=== PATIENT | male | born 1935 | race African-American/Black ===

== ENCOUNTER 2017-01-30 23:52 | Inpatient (IN) | payer MEDICARE, OTHER ==
[~2017-01-30] VITALS: Ht 188 cm; Wt 79.5 kg
[2017-01-31 00:45] LABS: ABNORMAL IP MESSAGE 1; BASOPHIL # 0.1 10^3/ul (0.0-0.1); BASOPHILS % 0.6 % (0.0-2.0); EOSINOPHILS # 0.1 10^3/ul (0.0-0.5); EOSINOPHILS % 0.8 % (0.0-7.0); HEMATOCRIT 41.3 % (42.0-52.0); HEMOGLOBIN 13.7 g/dl (14.0-18.0); LYMPHOCYTES # 1.5 10^3/ul (0.8-2.9); MEAN CORPUSCULAR HEMOGLOBIN 23.1 pg (29.0-33.0); MEAN CORPUSCULAR HGB CONC 33.2 g/dl (32.0-37.0); MEAN CORPUSCULAR VOLUME 69.6 fl (82.0-101.0); MONOCYTES % 11.8 % (0.0-11.0); NEUTROPHILS % 68.3 % (39.0-77.0); PLATELET COUNT 171 10^3/UL (140-415); POSITIVE DIFF @See below; RED BLOOD COUNT 5.93 10^6/ul (4.70-6.10); RED CELL DISTRIBUTION WIDTH 16.9 % (11.5-14.5); WHITE BLOOD COUNT 8.4 10^3/ul (4.8-10.8)
[2017-01-31 01:05] LABS: ALBUMIN 3.2 g/dl (3.3-4.9); ALBUMIN/GLOBULIN RATIO 0.94; BILIRUBIN,INDIRECT 1.1 mg/dl (0-1.1); BILIRUBIN,TOTAL 1.1 mg/dl (0.2-1.3); CALCIUM 9.2 mg/dl (8.4-10.2); CREATININE 1.39 mg/dl (0.61-1.24); POTASSIUM 3.8 mmol/L (3.5-5.1); TOTAL PROTEIN 6.6 g/dl (6.1-8.1)
--- NOTE | 2017-01-31 01:12 | RADRPT ---
PROCEDURE: Chest. CLINICAL INDICATION: Shortness of breath. TECHNIQUE: Single frontal view of the chest was obtained. COMPARISON: None. FINDINGS: There is a left-sided pacemaker AICD. The cardiac silhouette is enlarged. The aortic arch is calcif ied. There is mild pulmonary venous congestion. There is mild right basilar atelectasis/infiltrate. There is no pleural effusion. There is a calcified left mediastinal lymph node measuring 2.5 x 1.3 cm. There is no pneumothorax. IMPRESSION: Moderate cardiomegaly and mild pulmonary venous congestion. Right basilar atelectasis/infiltrate. Aortic atherosclerosis. Calcified left mediastinal lymph node. .Ismael Diaz MD, MD Date Time Electronically viewed and signed by .Ismael Diaz MD, on 01/31/2017 01:12 .T/
[2017-01-31 01:16] LABS: TROPONIN-I 0.056 ng/ml (0.00-0.12)
[2017-01-31] MEDS ORDERED: FUROSEMIDE 40 MG INJ IV ONE (02:30)
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
[2017-01-31] MEDS ORDERED: SIMV20TA PO (03:11)
[2017-01-31] MEDS ORDERED: CARV25TA79 PO (03:11)
[2017-01-31] MEDS ORDERED: FURO20TA3 PO (03:11)
[2017-01-31] MEDS ORDERED: LISI20TA11 PO (03:11)
[2017-01-31] MEDS ORDERED: CHOL100062 PO (03:11)
[2017-01-31] MEDS ORDERED: ALBUTEROL/IPRATROPIUM (NEB) 3 ML AMP HHN PRN ×2 (06:30→22:30)
[2017-01-31] MEDS ORDERED: NITROGLYCERIN (SL) 0.4 MG TAB SL PRN ×2 (06:30→22:30)
[2017-01-31] MEDS ORDERED: NACL 0.9% 3 ML SYG IV SCH (06:30)
[2017-01-31] MEDS ORDERED: ACETAMINOPHEN 325 MG TAB PO PRN ×2 (06:30→22:30)
[2017-01-31] MEDS ORDERED: LORAZEPAM 0.5 MG TAB PO PRN ×2 (06:30→22:30)
[2017-01-31] MEDS ORDERED: ONDANSETRON 4 MG INJ IV PRN ×2 (06:30→22:30)
[2017-01-31] MEDS ORDERED: ENALAPRILAT 1.25 MG INJ IV ONE (08:30)
[2017-01-31 08:44] LABS: TROPONIN-I 0.067 ng/ml (0.00-0.12)
[2017-01-31 08:46] LABS: CK-MB 1.24 ng/ml (0.0-2.4)
[2017-01-31] MEDS ORDERED: LEVOFLOXACIN 500MG/D5W (PMX) 100 ML IVPB SCH (09:00)
[2017-01-31] MEDS ORDERED: FUROSEMIDE 20 MG INJ IV SCH (09:00)
[2017-01-31] MEDS ORDERED: HEPARIN 5,000 UNIT/0.5 ML VIAL SC SCH (09:00)
[2017-01-31] MEDS ORDERED: LISINOPRIL 20 MG TAB PO SCH (09:00)
[2017-01-31] MEDS ORDERED: CHOLECALCIFEROL 1,000 UNIT TAB PO SCH (09:00)
[2017-01-31 13:23] LABS: CK-MB 1.2 ng/ml (0.0-2.4); TROPONIN-I 0.074 ng/ml (0.00-0.12)
[2017-01-31 15:30] VITALS: TEMP 98
--- NOTE | 2017-01-31 16:26 | RADRPT ---
Echocardiogram Report Patient Name: DANIELLE BARNETT Gender: Male Date: 1935 Study Date: 31-Jan-2017 [place] Cleaner: Missael De Luna [facility] Location: [facility] Ref. Physician: GIRISH CURRY Quality: Adequate Procedures: Transthoracic echocardiogram with complete 2D, M-Mode, and doppler examination. Indications: Shortness of breath. 2D/M Mode Doppler Measurement Value Normal Ranges Measurement Value Normal Ranges LVIDd 2D 6.4 3.5 - 5.6 cm AV Peak Dax 0.9 m/sec LVIDs 2D 5.7 2.1 - 4.1 cm AV Peak PG 3.0 mmHg FS 2D 11.4 % LVOT Peak Dax 0.7 m/sec LVPWd 2D 1.1 0.6 - 1.1 cm LVOT Peak PG 2.0 mmHg IVSd 2D 1.1 0.6 - 1.1 cm MV E Peak Dax 0.9 m/sec IVS/LVPW 2D 0.9 MV Decel Time 215 msec AoR Diam 2D 3.2 2.0 - 3.7 cm MR Peak PG 100.0 mmHg LA/Ao 2D 2 0 - 1 MR Peak Dax 5.0 m/sec EDV 2D 261.0 cm3 TR Peak Dax 2.5 m/sec ESV 2D 181.0 cm3 TR Peak PG 24.0 mmHg LA Dimen 2D 4.9 2.3 - 4.0 cm RVSP 32.0 mmHg Findings Left Ventricle: Normal left ventricular wall thickness. Moderate enlargement of left ventricle cavity. Severe global left ventricular systolic dysfunction. Ejection fraction is visually estimated at 2025 %. Abnormal Diastolic Function. Right Ventricle: Normal right ventricular size. Mild right ventricular systolic dysfunction. Pacemaker right heart. Left Atrium: There is severe enlargement of left atrium. Right Atrium: There is severe enlargement of right atrium. Mitral Valve: Mitral valve leaflets appear mildly thickened. Mild mitral annular calcification. Severe mitral valve regurgitation. The regurgitation jet is eccentrically directed which may underestimate the severity of mitral regurgitation. Aortic Valve: Aortic sclerosis without stenosis. Trace aortic valve regurgitation. Tricuspid Valve: Normal appearance of the tricuspid valve. Estimated peak PA systolic pressure 32 mmHg. There is mild tricuspid regurgitation. Pulmonic Valve: Normal pulmonic valve appearance. There is mild pulmonic regurgitation. Pericardium: Normal pericardium with no significant pericardial effusion. Aorta: Normal aortic root. IVC: Dilated IVC with respiratory collapse consistent with elevated right atrial pressure. Conclusions 1.The left ventricle is moderately dilated with severely reduced systolic function. 2.Estimated left ventricular ejection fraction of 20-25%. 3.Severe mitral regurgitation. 4.Severe bi-atrial enlargement. Electronically Signed By: Kevin Mccall 31-Jan-2017 16:26:26 -0700 Patient Name: DANIELLE BARNETT Study Date: 31-Jan-2017 [id number]
[2017-01-31 17:45] VITALS: BP 164/92; PULSE 61; RESP 25
[2017-01-31 17:46] VITALS: PULSE 94
[2017-01-31 17:51] VITALS: Ht 188 cm; Wt 79.5 kg
[2017-01-31 20:01] VITALS: PULSE 67
[2017-01-31] MEDS: ATORVASTATIN 10 MG TAB PO SCH (21:35)
[2017-01-31] MEDS: HEPARIN 5,000 UNIT/0.5 ML VIAL SC SCH (21:36)
--- NOTE | 2017-01-31 22:32 | HP ---
Date/Time of Note Date/Time of Note DATE: 01/31/17 TIME: 22:32 Assessment/Plan Lines/Catheters IV Catheter Type (from [facility]): Saline Lock Urinary Cath still in place: No HPI/ROS Admit Date/Time Admit Date/Time Jan 31, 2017 at 03:05 PMH/Family/Social Social History Smoking Status: Former smoker Exam/Review of Systems Vital Signs Vitals Vital Signs Date Time Temp Pulse Resp B/P Pulse Ox O2 Delivery O2 Flow Rate FiO2 01/31/17 20:01 67 01/31/17 20:01 Nasal Cannula 2.0 01/31/17 17:45 98.8 25 164/92 98 Labs Result Diagram: 01/31/172901/31/1729 Medications Medications Current Medications Atorvastatin Calcium (Lipitor) 10 mg DAILY@21 PO Last administered on 21:35; Admin Dose 10 MG; Start 01/31/17 at 21:00 Carvedilol (Coreg) 25 mg BID PO Last administered on 01/31/17 21:35; Admin Dose 25 MG; Start 01/31/17 at 21:30 Heparin Sodium (Porcine) 5000 unit 5,000 unit BID SC Last administered on 21:36; Admin Dose 5,000 UNIT; Start 01/31/17 at 21:30 Levofloxacin/ Dextrose (Levaquin 500mg/ D5W 100 ml (Pmx)) 100 ml @ 100 mls/hr Q24H IVPB ; Start 02/01/17 at 09:00; Status UNV Acetaminophen (Tylenol Tab) 650 mg Q6H PRN PO PAIN AND OR ELEVATED TEMP; Start 01/31/17 at 22:30; Status UNV Cholecalciferol (Vitamin D) 1,000 unit DAILY PO ; Start 02/01/17 at 09:00; Status UNV Furosemide (Lasix) 20 mg DAILY IV ; Start 02/01/17 at 09:00; Status UNV Lisinopril (Zestril) 20 mg DAILY PO ; Start 02/01/17 at 09:00; Status UNV Lorazepam (Ativan) 0.5 mg Q8H PRN PO ANXIETY; Start 01/31/17 at 22:30; Status UNV Nitroglycerin (Nitroglycerin (Sl Tab) 0.4 Mg) 1 tab Q5M PRN SL ANGINA; Start at 22:30; Status UNV Ondansetron HCl (Zofran Inj) 4 mg Q6H PRN IV NAUSEA AND/OR VOMITING; Start at 22:30; Status UNV GIRISH CURRY MD Jan 31, 2017 22:32
[2017-01-31 22:35] VITALS: BP 124/77; RESP 20
[2017-01-31 23:50] VITALS: PULSE 52
[2017-02-01] VITALS (11 sets, daily range): BP systolic 119–130; BP diastolic 69–92; PULSE 69–95; RESP 18–20
[2017-02-01] MEDS ORDERED: FUROSEMIDE 20 MG INJ IV SCH (06:00)
[2017-02-01 08:16] LABS: ABNORMAL IP MESSAGE 1; BASOPHIL # 0.1 10^3/ul (0.0-0.1); BASOPHILS % 0.7 % (0.0-2.0); EOSINOPHILS # 0.2 10^3/ul (0.0-0.5); EOSINOPHILS % 1.9 % (0.0-7.0); HEMATOCRIT 41.6 % (42.0-52.0); HEMOGLOBIN 13.5 g/dl (14.0-18.0); LYMPHOCYTES # 1.7 10^3/ul (0.8-2.9); LYMPHOCYTES % 21.4 % (15.0-51.0); MEAN CORPUSCULAR HEMOGLOBIN 22.4 pg (29.0-33.0); MEAN CORPUSCULAR HGB CONC 32.5 g/dl (32.0-37.0); MEAN CORPUSCULAR VOLUME 68.9 fl (82.0-101.0); MONOCYTE # 1.1 10^3/ul (0.3-0.9); MONOCYTES % 13.3 % (0.0-11.0); NEUTROPHILS % 62.3 % (39.0-77.0); PLATELET COUNT 156 10^3/UL (140-415); POSITIVE DIFF @See below; RED BLOOD COUNT 6.04 10^6/ul (4.70-6.10); RED CELL DISTRIBUTION WIDTH 17.3 % (11.5-14.5)
[2017-02-01 08:33] LABS: ALBUMIN 3.1 g/dl (3.3-4.9); BILIRUBIN,INDIRECT 1.3 mg/dl (0-1.1); BILIRUBIN,TOTAL 1.3 mg/dl (0.2-1.3); CALCIUM 8.9 mg/dl (8.4-10.2); CHOL/HDL RATIO 2.4 RATIO; CREATININE 1.41 mg/dl (0.61-1.24); MAGNESIUM 1.8 mg/dl (1.7-2.5); PHOSPHORUS 3.2 mg/dl (2.5-4.9); POTASSIUM 3.6 mmol/L (3.5-5.1); TOTAL PROTEIN 6.2 g/dl (6.1-8.1)
[2017-02-01] MEDS ORDERED: LEVOFLOXACIN 500MG/D5W (PMX) 100 ML IVPB SCH (09:00)
[2017-02-01 09:02] LABS: THYROID STIMULATING HORMONE 1.51 MIU/L (0.465-4.680)
[2017-02-01] MEDS: LISINOPRIL 20 MG TAB PO SCH (09:22)
[2017-02-01] MEDS: CHOLECALCIFEROL 1,000 UNIT TAB PO SCH (09:23)
[2017-02-01] MEDS: HEPARIN 5,000 UNIT/0.5 ML VIAL SC SCH ×2 (09:33→20:50)
--- NOTE | 2017-02-01 14:58 | PN ---
Date/Time of Note Date/Time of Note DATE: 02/01/17 TIME: 14:53 Assessment/Plan VTE Prophylaxis VTE Prophylaxis Intervention: heparin Lines/Catheters IV [facility]from [facility] Saline Lock Urinary Cath still in place: No Assessment/Plan Chief Complaint/Hosp Course 1. Acute respiratory distress likely secondary to CHF exacerbation versus bronchitis Increase Lasix dose Continue Levaquin for now, consider discontinuing tomorrow as patient has no fever or leukocytosis Patient has a known history of CHF for many years now and typically follows up at the [place], echo here shows an EF of 20- 25% Chest x-ray in a.m. 2. Microcytic anemia Check iron panel 3. Acute versus chronic kidney disease-possibly cardiorenal Continue diuresis Prophylaxis: Heparin . Problems: Subjective 24 Hr Interval Summary Respiratory: shortness of breath Exam/Review of Systems Vital Signs Vitals Vital Signs Date Time Temp Pulse Resp B/P Pulse Ox O2 Delivery O2 Flow Rate FiO2 02/01/17 13:10 Nasal Cannula 2.0 02/01/17 12:00 95 02/01/17 11:43 98.0 20 130/81 98 Intake and Output 01/31/17 01/31/17 02/01/17 15:00 23:00 07:00 Intake Total 112 ml 350 ml Balance 112 ml 350 ml Exam Constitutional: alert, oriented Respiratory: clear to auscultation Cardiovascular: regular rate and rhythm Gastrointestinal: soft, No distended Musculoskeletal: nl extremities to inspection Results Result Diagram: 02/01/17 0748 02/01/17 0748 Results 24 hrs Laboratory Tests Test 02/01/17 07:48 White Blood Count 8.0 Red Blood Count 6.04 Hemoglobin 13.5 L Hematocrit 41.6 L Mean Corpuscular Volume 68.9 L Mean Corpuscular Hemoglobin 22.4 L Mean Corpuscular Hemoglobin Concent 32.5 Red Cell Distribution Width 17.3 H Platelet Count 156 Mean Platelet Volume Neutrophils % 62.3 Lymphocytes % 21.4 Monocytes % 13.3 H Eosinophils % 1.9 Basophils % 0.7 Nucleated Red Blood Cells % 0.0 Neutrophils # 5.0 Lymphocytes # 1.7 Monocytes # 1.1 H Eosinophils # 0.2 Basophils # 0.1 Nucleated Red Blood Cells # 0.0 Sodium Level 140 Potassium Level 3.6 Chloride Level 107 Carbon Dioxide Level 27 Anion Gap 10 Blood Urea Nitrogen 28 H Creatinine 1.41 H Glucose Level 108 Hemoglobin A1c 5.8 Calcium Level 8.9 Phosphorus Level 3.2 Magnesium Level 1.8 Total Bilirubin 1.3 Direct Bilirubin 0.00 Indirect Bilirubin 1.3 H Aspartate Amino Transf (AST/SGOT) 29 Alanine Aminotransferase (ALT/SGPT) 44 Alkaline Phosphatase 68 Total Protein 6.2 Albumin 3.1 L Globulin 3.10 Albumin/Globulin Ratio 1.00 Triglycerides Level 38 Cholesterol Level 112 LDL Cholesterol, Calculated 58 HDL Cholesterol 46 Cholesterol/HDL Ratio 2.4 Thyroid Stimulating Hormone (TSH) 1.510 Medications Medications Current Medications Atorvastatin Calcium (Lipitor) 10 mg DAILY@21 PO Last administered on 21:35; Admin Dose 10 MG; Start 01/31/17 at 21:00 Carvedilol (Coreg) 25 mg BID PO Last administered on 02/01/17 09:23; Admin Dose 25 MG; Start 01/31/17 at 21:30 Heparin Sodium (Porcine) 5000 unit 5,000 unit BID SC Last administered on 09:33; Admin Dose 5,000 UNIT; Start 01/31/17 at 21:30 Levofloxacin/ Dextrose (Levaquin 500mg/ D5W 100 ml (Pmx)) 100 ml @ 100 mls/hr Q24H IVPB Last administered on 02/01/17 09:24; Admin Dose 100 MLS/HR; Start at 09:00 Acetaminophen (Tylenol Tab) 650 mg Q6H PRN PO PAIN AND OR ELEVATED TEMP; Start 01/31/17 at 22:30 Cholecalciferol (Vitamin D) 1,000 unit DAILY PO Last administered on 02/01/17 09:23; Admin Dose 1,000 UNIT; Start 02/01/17 at 09:00 Furosemide (Lasix) 20 mg DAILY@06 IV Last administered on 02/01/17 05:53; Admin Dose 20 MG; Start 02/01/17 at 06:00 Lisinopril (Zestril) 20 mg DAILY PO Last administered on 02/01/17 09:22; Admin Dose 20 MG; Start 02/01/17 at 09:00 Lorazepam (Ativan) 0.5 mg Q8H PRN PO ANXIETY; Start 01/31/17 at 22:30 Nitroglycerin (Nitroglycerin (Sl Tab) 0.4 Mg) 1 tab Q5M PRN SL ANGINA; Start at 22:30 Ondansetron HCl (Zofran Inj) 4 mg Q6H PRN IV NAUSEA AND/OR VOMITING; Start at 22:30 FLACO CHILEL Feb 01, 2017 14:58
[2017-02-01] MEDS ORDERED: FUROSEMIDE 20 MG INJ IV ONE (15:00)
--- NOTE | 2017-02-01 17:52 | RADRPT ---
PROCEDURE: XR Chest. CLINICAL INDICATION: Shortness of breath. TECHNIQUE: Single frontal view. COMPARISON: 01/31/2017. FINDINGS: There is mild right basilar atelectasis, improved. Mild pulmonary edema is unchanged. The lungs are otherwise clear. The heart is enlarged. There is calcification in the aorta consistent with atherosclerosis. There is a single lead automatic internal cardiac defibrillator/pacemaker. There is no pleural effusion. There is no pneumothorax. IMPRESSION: 1. Improved appearance of the right lung base. 2. Mild pulmonary edema, unchanged. 3. Cardiomegaly and atherosclerosis. 4. AICD / pacemaker. RPTAT: QQ .Wilian Chapin MD, MD Date Time Electronically viewed and signed by .Wilian Chapin MD, MD on 02/01/2017 17:52 .R/
[2017-02-01] MEDS: FUROSEMIDE 40 MG INJ IV SCH (18:24)
[2017-02-01] MEDS: ATORVASTATIN 10 MG TAB PO SCH (20:43)
[2017-02-02] VITALS (12 sets, daily range): BP systolic 100–122; BP diastolic 77–91; PULSE 63–86; RESP 17–21
[2017-02-02] MEDS: FUROSEMIDE 40 MG INJ IV SCH ×2 (05:50→17:46)
[2017-02-02 07:55] LABS: ABNORMAL IP MESSAGE 1; BASOPHIL # 0.1 10^3/ul (0.0-0.1); BASOPHILS % 0.7 % (0.0-2.0); EOSINOPHILS # 0.2 10^3/ul (0.0-0.5); HEMATOCRIT 41.3 % (42.0-52.0); HEMOGLOBIN 13.6 g/dl (14.0-18.0); LYMPHOCYTES # 2.9 10^3/ul (0.8-2.9); LYMPHOCYTES % 35.5 % (15.0-51.0); MEAN CORPUSCULAR HEMOGLOBIN 22.4 pg (29.0-33.0); MEAN CORPUSCULAR HGB CONC 32.9 g/dl (32.0-37.0); MEAN CORPUSCULAR VOLUME 68.2 fl (82.0-101.0); MONOCYTE # 1.1 10^3/ul (0.3-0.9); MONOCYTES % 13.7 % (0.0-11.0); NEUTROPHIL # 3.9 10^3/ul (1.6-7.5); NEUTROPHILS % 47.7 % (39.0-77.0); PLATELET COUNT 178 10^3/UL (140-415); POSITIVE DIFF @See below; RED BLOOD COUNT 6.06 10^6/ul (4.70-6.10); RED CELL DISTRIBUTION WIDTH 17.4 % (11.5-14.5); WHITE BLOOD COUNT 8.2 10^3/ul (4.8-10.8)
[2017-02-02 08:10] LABS: CALCIUM 9.2 mg/dl (8.4-10.2); CREATININE 1.52 mg/dl (0.61-1.24); POTASSIUM 3.1 mmol/L (3.5-5.1)
[2017-02-02 08:28] LABS: IRON 52 ug/dl (35-150)
[2017-02-02 08:38] LABS: TOTAL IRON BINDING CAPACITY 283 ug/dl (241-421)
[2017-02-02] MEDS: CHOLECALCIFEROL 1,000 UNIT TAB PO SCH (09:27)
[2017-02-02] MEDS: LISINOPRIL 20 MG TAB PO SCH (09:28)
[2017-02-02] MEDS: HEPARIN 5,000 UNIT/0.5 ML VIAL SC SCH ×2 (09:41→21:02)
[2017-02-02] MEDS ORDERED: POTASSIUM CHLORIDE (SR) 20 MEQ TAB PO STA (11:29)
--- NOTE | 2017-02-02 18:29 | PN ---
Date/Time of Note Date/Time of Note DATE: 02/02/17 TIME: 18:26 Assessment/Plan VTE Prophylaxis VTE Prophylaxis Intervention: heparin Lines/Catheters IV [facility] Saline Lock Urinary Cath still in place: No Assessment/Plan Chief Complaint/Hosp Course 1. Acute respiratory distress secondary to CHF exacerbation-improved but shortness of breath persists Continue Lasix dose DC'd Levaquin Patient has a known history of CHF for many years now and typically follows up at the [place], echo here shows an EF of 20- 25% Chest x-ray shows improvement in the right lung base 2. Microcytic anemia Iron panel suggests some mild iron deficiency Ferrlecit IV 3. Acute versus chronic kidney disease-possibly cardiorenal -Persistent creatinine elevation likely secondary to CKD -Continue diuresis Prophylaxis: Heparin . Problems: Subjective 24 Hr Interval Summary Respiratory: shortness of breath Exam/Review of Systems Vital Signs Vitals Vital Signs Date Time Temp Pulse Resp B/P Pulse Ox O2 Delivery O2 Flow Rate FiO2 02/02/17 16:59 69 02/02/17 15:29 97.8 18 120/87 98 02/02/17 08:10 Nasal Cannula 2.0 Intake and Output 02/01/17 02/01/17 02/02/17 15:00 23:00 07:00 Intake Total 980 ml 440 ml Balance 980 ml 440 ml Exam Constitutional: alert, oriented Respiratory: clear to auscultation Cardiovascular: regular rate and rhythm Gastrointestinal: soft, No distended Musculoskeletal: nl extremities to inspection Results Result Diagram: 02/02/17 0644 02/02/17 0644 Results 24 hrs Laboratory Tests Test 02/02/17 06:44 White Blood Count 8.2 Red Blood Count 6.06 Hemoglobin 13.6 L Hematocrit 41.3 L Mean Corpuscular Volume 68.2 L Mean Corpuscular Hemoglobin 22.4 L Mean Corpuscular Hemoglobin Concent 32.9 Red Cell Distribution Width 17.4 H Platelet Count 178 Mean Platelet Volume Neutrophils % 47.7 Lymphocytes % 35.5 Monocytes % 13.7 H Eosinophils % 2.0 Basophils % 0.7 Nucleated Red Blood Cells % 0.0 Neutrophils # 3.9 Lymphocytes # 2.9 Monocytes # 1.1 H Eosinophils # 0.2 Basophils # 0.1 Nucleated Red Blood Cells # 0.0 Sodium Level 139 Potassium Level 3.1 L Chloride Level 103 Carbon Dioxide Level 30 Anion Gap 9 Blood Urea Nitrogen 34 H Creatinine 1.52 H Glucose Level 87 Calcium Level 9.2 Iron Level 52 Total Iron Binding Capacity 283 Percent Iron Saturation 18 L Medications Medications Current Medications Atorvastatin Calcium (Lipitor) 10 mg DAILY@21 PO Last administered on 20:43; Admin Dose 10 MG; Start 01/31/17 at 21:00 Carvedilol (Coreg) 25 mg BID PO Last administered on 02/02/17 09:28; Admin Dose 25 MG; Start 01/31/17 at 21:30 Heparin Sodium (Porcine) (Heparin (5000 Units/0.5 ml)) 5,000 unit BID SC Last administered on 02/02/17 09:41; Admin Dose 5,000 UNIT; Start 01/31/17 at 21:30 Acetaminophen (Tylenol Tab) 650 mg Q6H PRN PO PAIN AND OR ELEVATED TEMP; Start 01/31/17 at 22:30 Cholecalciferol (Vitamin D) 1,000 unit DAILY PO Last administered on 02/02/17 09:27; Admin Dose 1,000 UNIT; Start 02/01/17 at 09:00 Lisinopril (Zestril) 20 mg DAILY PO Last administered on 02/02/17 09:28; Admin Dose 20 MG; Start 02/01/17 at 09:00 Lorazepam (Ativan) 0.5 mg Q8H PRN PO ANXIETY; Start 01/31/17 at 22:30 Nitroglycerin (Nitroglycerin (Sl Tab) 0.4 Mg) 1 tab Q5M PRN SL ANGINA; Start at 22:30 Ondansetron HCl (Zofran Inj) 4 mg Q6H PRN IV NAUSEA AND/OR VOMITING; Start at 22:30 FLACO CHILEL Feb 02, 2017 18:29
[2017-02-02] MEDS: ATORVASTATIN 10 MG TAB PO SCH (20:53)
[2017-02-03] VITALS (8 sets, daily range): BP systolic 102–134; BP diastolic 60–87; PULSE 67–79; RESP 18–25
[2017-02-03] MEDS: FUROSEMIDE 40 MG INJ IV SCH (05:37)
[2017-02-03 07:39] LABS: ABNORMAL IP MESSAGE 1; BASOPHIL # 0.1 10^3/ul (0.0-0.1); BASOPHILS % 0.8 % (0.0-2.0); EOSINOPHILS # 0.2 10^3/ul (0.0-0.5); HEMATOCRIT 44.4 % (42.0-52.0); HEMOGLOBIN 14.5 g/dl (14.0-18.0); LYMPHOCYTES # 2.4 10^3/ul (0.8-2.9); LYMPHOCYTES % 33.1 % (15.0-51.0); MEAN CORPUSCULAR HEMOGLOBIN 22.8 pg (29.0-33.0); MEAN CORPUSCULAR HGB CONC 32.7 g/dl (32.0-37.0); MEAN CORPUSCULAR VOLUME 69.7 fl (82.0-101.0); MONOCYTE # 1.1 10^3/ul (0.3-0.9); MONOCYTES % 15.5 % (0.0-11.0); NEUTROPHIL # 3.5 10^3/ul (1.6-7.5); NEUTROPHILS % 48.2 % (39.0-77.0); PLATELET COUNT 144 10^3/UL (140-415); POSITIVE DIFF @See below; RED BLOOD COUNT 6.37 10^6/ul (4.70-6.10); RED CELL DISTRIBUTION WIDTH 17.3 % (11.5-14.5); WHITE BLOOD COUNT 7.3 10^3/ul (4.8-10.8)
[2017-02-03 08:20] LABS: CALCIUM 8.9 mg/dl (8.4-10.2); CREATININE 1.72 mg/dl (0.61-1.24); MAGNESIUM 1.8 mg/dl (1.7-2.5); POTASSIUM 3.5 mmol/L (3.5-5.1)
[2017-02-03] MEDS ORDERED: SOD FERRIC GLUC COMPLX 125 MG in SOD CHLORIDE 0.9% 100 ML IVPB ONE (09:00)
[2017-02-03] MEDS: CHOLECALCIFEROL 1,000 UNIT TAB PO SCH (09:13)
[2017-02-03] MEDS: LISINOPRIL 20 MG TAB PO SCH (09:13)
[2017-02-03] MEDS: HEPARIN 5,000 UNIT/0.5 ML VIAL SC SCH (09:18)
--- NOTE | 2017-02-03 11:37 | PDOCDIS ---
Discharge Instructions CONDITION Patient Condition: Good HOME CARE INSTRUCTIONS: Diet Instructions: Reduced Sodium ACTIVITY: Activity Restrictions: No Restrictions FOLLOW UP/APPOINTMENTS Follow-up Plan F/U WITH YOUR PCP IN 1-2 WEEKS FLACO CHILEL Feb 03, 2017 11:37
--- NOTE | 2017-02-03 14:57 | DS ---
Date/Time of Note Date/Time of Note DATE: 02/03/17 TIME: 14:53 Discharge Summary Admission/Discharge Info Admit Date/Time Jan 31, 2017 at 03:05 Discharge Date/Time Feb 03, 2017 at 13:51 Discharge Diagnosis 1. Acute respiratory distress secondary to CHF exacerbation-resolved Echo showed an EF of 20-25% Continue home Lasix 2. Microcytic anemia Iron panel suggested some mild iron deficiency Status post Ferrlecit IV 3. Acute versus chronic kidney disease-likely chronic -Follow with PCP . Patient Condition: Good Hospital Course Patient is a 81-year-old male with a long-standing history of CHF, likely CKD. Patient's heart failure has been managed with medications including Lasix. Patient presents with shortness of breath, chest x-ray suggested CHF exacerbation patient was started on diuretics. There was question of possible pneumonia and patient was treated with Levaquin but this was also ultimately discontinued as patient had no evidence of sepsis. Echo did show an EF of 20-25 %, patient states that he had been on Lasix for many years and never had a problem of decompensated CHF. Patient was given extra doses of Lasix and his shortness of breath did resolve with improvement on chest x-ray. Patient did have a microcytic anemia did have some mild iron deficiency and was given IV iron. On day of discharge patient was ambulating without any oxygen and no longer complained of any shortness of breath. On the day of discharge patient' s vitals, labs and physical exam stable and no further acute complaints and questions are answered. Home Meds Reported Medications Cholecalciferol* (Vitamin D3*) 1,000 Unit Tablet, 1000 UNIT PO DAILY, TAB 01/31/17 Simvastatin* (Zocor*) 20 Mg Tablet, 20 MG PO QHS, #30 TAB 01/31/17 Lisinopril* (Lisinopril*) 20 Mg Tablet, 20 MG PO DAILY, #30 TAB 01/31/17 Furosemide* (Furosemide*) 20 Mg Tablet, 20 MG PO DAILY, #60 TAB 01/31/17 Carvedilol* (Carvedilol*) 25 Mg Tablet, 25 MG PO BID, #60 TAB 01/31/17 Follow-up Plan F/U WITH YOUR PCP IN 1-2 WEEKS Primary Care Provider Care Physician No Primary Time spent on discharge: > 30 minutes FLACO CHILEL Feb 03, 2017 14:57
== END 2017-02-03 13:51 | disposition home or self-care (01) | DRG 291 ==
LOC: EDBD 23:52 → E/R 23:52 → MS4 01-31 03:05 → UNDODISIN 01-31 14:33
PROVIDERS: ADMIT Internal Medicine; ATTEND Internal Medicine
DX: I13.0 Hypertensive heart and chronic kidney disease with heart failure and stage 1 through stage 4 chronic kidney disease, or unspecified chronic kidney disease (principal); I50.23 Acute on chronic systolic (congestive) heart failure; N17.9 Acute kidney failure, unspecified; D63.8 Anemia in other chronic diseases classified elsewhere; J40 Bronchitis, not specified as acute or chronic; N18.9 Chronic kidney disease, unspecified; Z95.810 Presence of automatic (implantable) cardiac defibrillator; Z87.891 Personal history of nicotine dependence
CPT/HCPCS: 36415; 71010; 80048; 80053; 80061; 82550; 82553; 83036; 83540; 83735; 83880; 84100; 84443; 84484; 85025; 93005; 93306; 96372; 96374; 96375; 96376; 97161; J1940; J1644; J1956; J2916